=== PATIENT | female | born 1985 | race African-American/Black ===

== ENCOUNTER 2021-09-24 09:43 | Emergency (ER) | payer MEDICAID, OTHER ==
[~2021-09-24] VITALS: Ht 160 cm; Wt 90.9 kg
[2021-09-24 09:44] VITALS: BP 162/104
--- NOTE | 2021-09-24 10:11 | PHYS DOC ---
Past Medical History Past Medical History: No Pertinent History (LYNNETTE JOVEL APRN) Past Surgical History: No Surgical History (LYNNETTE JOVEL APRN) Smoking Status: Current Every Day Smoker Alcohol Use: None Drug Use: None (LYNNETTE JOVEL APRN) General Adult EDM: Chief Complaint: FINGER INJURY HPI: HPI: Patient is a 36 year old Female who presents with went to the grocery store on 09/10 and filler picker a bag of frozen shrimp and her tip of her right middle finger got punctured by the corner of the back. Patient states it bled slightly. She states then she had some numbness and sharp shooting pains in the tip of the finger. She states 2 days after this occurred she took a needle and put it in the tip of her finger and got a piece of red or orange plastic out of the finger as if there was like a foreign body still stuck in the finger. She states she continues to have some numbness in the tip of the finger with sharp shooting pains that radiates down into the hand that she when she is trying to grab something. She denies swelling, redness, tenderness, drainage, fever, red streaking, skin color change, skin temperature change. She has a history of smoking. Currently rating her pain 4 out of 10. (LYNNETTE JOVEL APRN) Review of Systems: Review of Systems: Constitutional: Denies fever or chills. [] Eyes: Denies change in visual acuity. [] HENT: Denies nasal congestion or sore throat. [] Respiratory: Denies cough or shortness of breath. [] Cardiovascular: Denies chest pain or edema. [] GI: Denies abdominal pain, nausea, vomiting, bloody stools or diarrhea. [] : Denies dysuria. [] Musculoskeletal: Denies back pain or joint pain. + Right hip middle finger pain [] Integument: Denies rash. [] Neurologic: Denies headache, focal weakness or +right hip middle finger numbne ss sensory changes. [] Endocrine: Denies polyuria or polydipsia. [] Lymphatic: Denies swollen glands. [] Psychiatric: Denies depression or anxiety. [] (LYNNETTE JOVEL APRN) Heart Score: C/O Chest Pain: No (LYNNETTE JOVEL APRN) Allergies: Allergies: Allergies Coded Allergies Type Severity Reaction Last Updated Verified No Known Drug Allergies 09/24/21 No (LYNNETTE JOVEL APRN) Physical Exam: PE: Constitutional: Well developed, well nourished, no acute distress, non-toxic appearance. [] HENT: Normocephalic, atraumatic, bilateral external ears normal, oropharynx moist, no oral exudates, nose normal. [] Eyes: PERRLA, EOMI, conjunctiva normal, no discharge. [] Neck: Normal range of motion, no tenderness, supple, no stridor. [] Cardiovascular:Heart rate regular rhythm, no murmur [] Lungs & Thorax: Bilateral breath sounds clear to auscultation [] Abdomen: Bowel sounds normal, soft, no tenderness, no masses, no pulsatile masses. [] Skin: Warm, dry, no erythema, no rash. [] Back: No tenderness, no CVA tenderness. [] Extremities: Right tip middle finger tenderness, no cyanosis, no clubbing, ROM intact, no edema. [] Neurologic: Alert and oriented X 3, normal motor function, normal sensory function, no focal deficits noted. [] Psychologic: Affect normal, judgement normal, mood normal. [] (LYNNETTE JOVEL APRN) Current Patient Data: Vital Signs: Vital Signs Date Time Temp Pulse Resp B/P (MAP) Pulse Ox O2 Delivery O2 Flow Rate FiO2 09/24/21 09:44 98.7 69 16 162/104 (123) 98 Room Air 98.7 (LYNNETTE JOVEL APRN) EKG: EKG: [] (LYNNETTE JOVEL APRN) Radiology/Procedures: Radiology/Procedures: [] Impression: [facility] [address] [place] [address] IMAGING REPORT Signed PATIENT: BABAK GARCIA ACCOUNT: [id number] : 1985 LOCATION: ER AGE: 36 SEX: F EXAM STATUS: PRE ER ORD. PHYSICIAN: LYNNETTE JOVEL APRN REASON: RIGHT TIP MIDDLE FINGER PUNCTURE, PATIENT THINKS FOREIGN BODY PRESENT PROCEDURE: FINGER(S) RIGHT EXAM: Right long finger, 3 views. HISTORY: Foreign body. COMPARISON: None. FINDINGS: 3 views of the right long finger are obtained. There is no fracture, dislocation or subluxation. There is no suspicious osseous lesion. There is no radiodense foreign body. IMPRESSION: No acute osseous finding or foreign body. Electronically signed by: Debbie Christopher MD (09/24/2021 10:26 AM) [id number] DICTATED and SIGNED BY: DEBBIE CHRISTOPHER MD DATE: 09/24/21 [id number] (LYNNETTE JOVEL APRN) Course & Med Decision Making: Course & Med Decision Making Pertinent Labs and Imaging studies reviewed. (See chart for details) See HPI. Alert and oriented x4. Ambulatory steady gait. Speaks in full clear sentences. No focal weakness. 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 No joint deformity, no swelling to the finger, no redness, slight tenderness with palpation with sporadic areas of numbness around the area that was punctured. No drainage. Radial pulse strong are present. Cap refill less than 2 seconds. No swelling to the hand or redness or red streaking. No signs of trauma. No signs of foreign body. No signs of tenosynovitis. Patient is wanting an x-ray to make sure there is no foreign body. This is likely nerve related pain. No obvious foreign bodies seen by Dr. Holt. [] (LYNNETTE JOVEL APRN) Dragon Disclaimer: Ricky Disclaimer: This electronic medical record was generated, in whole or in part, using a voice recognition dictation system. (LYNNETTE JOVEL APRN) Departure Departure Impression: Primary Impression: Finger pain, right Disposition: HOME / SELF CARE / HOMELESS Condition: STABLE Referrals: ESAU BAILEY (PCP) Patient Instructions: Pain, Neuropathic Additional Instructions: Use Ibuprofen for pain. Try over the counter creams with lidocaine for aggravated nerves. Follow up with primary care provider. Take medication as prescribed and with food. Do not poke or squeeze on finger as this can aggravate it more. Return for swelling, redness. red streaking, weakness. Scripts Ibuprofen (IBUPROFEN) 600 Mg Tablet 600 MG PO PRN Q6HRS PRN for INFLAMMATION, #25 TAB Prov: LYNNETTE JOVEL APRN 09/24/21 LYNNETTE JOVEL APRN Sep 24, 2021 10:10 MINERVA HOLT MD Sep 24, 2021 13:15
--- NOTE | 2021-09-24 10:28 | RAD ---
EXAM: Right long finger, 3 views. HISTORY: Foreign body. COMPARISON: None. FINDINGS: 3 views of the right long finger are obtained. There is no fracture, dislocation or subluxa tion. There is no suspicious osseous lesion. There is no radiodense foreign body. IMPRESSION: No acute osseous finding or foreign body. Electronically signed by: Debbie Chapman MD (09/24/2021 10:26 AM) [id number]
[2021-09-24] MEDS ORDERED: METH4TAB2 PO (10:33)
[2021-09-24] MEDS ORDERED: IBUP-1007 PO (10:33)
== END 2021-09-24 11:09 | disposition home or self-care (01) ==
LOC: ER 09:43
DX: F17.200 Nicotine dependence, unspecified, uncomplicated (principal); S69.91XA Unspecified injury of right wrist, hand and finger(s), initial encounter; X58.XXXA Exposure to other specified factors, initial encounter; Y93.89 Activity, other specified; Y92.89 Other specified places as the place of occurrence of the external cause; Y99.8 Other external cause status
CPT/HCPCS: 73140; 99283